=== PATIENT | female | born 1955 | race Caucasian/White ===

== ENCOUNTER 2022-01-07 05:30 | Outpatient (CLI) | payer BC ==
[~2022-01-07] VITALS: Ht 167.6 cm; Wt 79.7 kg
[~2022-01-07 05:30] MED LIST: LEVO50TA PO
[2022-01-07] MEDS ORDERED: MONT4TAB8 PO (10:29)
== END 2022-01-07 13:11 ==
LOC: PREOP 05:30
PROVIDERS: ATTEND Surgery
DX: Z01.818 Encounter for other preprocedural examination (principal)

== ENCOUNTER 2022-01-14 08:53 | Day surgery (SDC) | payer MEDICARE, OTHER ==
[~2022-01-14] VITALS: Ht 168 cm; Wt 79.7 kg
[~2022-01-14 08:53] MED LIST changes: +MONT4TAB8 PO
[2022-01-14] MEDS ORDERED: LACTATED RINGERS 1,000 ML IV STA (08:54)
[2022-01-14] MEDS ORDERED: LACTATED RINGERS 1,000 ML IV ONE (08:57)
[2022-01-14] MEDS ORDERED: LIDOCAINE JELLY 2% 6 ML SYRINGE MM PRN (09:00)
[2022-01-14 09:10] VITALS: BP 136/65
[2022-01-14] MEDS ORDERED: MIDAZOLAM 2 MG/2 ML (VERSED) VIAL ONE (10:30)
[2022-01-14] MEDS ORDERED: PROPOFOL INJECTION 50 ML IV ONE ×2 (10:30→10:59)
[2022-01-14] MEDS ORDERED: ONDANSETRON 4 MG (ZOFRAN) ORAL DISSOLVE TAB PO PRN (10:30)
[2022-01-14] MEDS ORDERED: ONDANSETRON 4 MG/2 ML (SDV) Z0FRAN IVP PRN (10:30)
--- NOTE | 2022-01-14 10:30 | Progress Note-Pre Operative ---
Pre-Operative Progress Note H&P Reviewed The H&P was reviewed, patient examined and no changes noted. Date Seen by Provider: Jan 14, 2022 Time Seen by Provider: 10:00 Date H&P Reviewed: Jan 14, 2022 Time H&P Reviewed: 10:00 Pre-Operative Diagnosis: screening/family hx SIMRAN GROVER MD Jan 14, 2022 10:30
--- NOTE | 2022-01-14 10:31 | Discharge Inst-Surgical ---
D/C Lap Instructions-LENORE Follow Up Activity as tolerated High Fiber Diet 25g or more per day Avoid Alcohol, Caffeine, Spicy [place] and Acid foods. Drink 64 fluid oz or more of fluids per day. Symptoms to Report: Fever over 101 degree F, Nausea/Vomiting If any problems/questions: Contact your physician or go to Emergency Room SIMRAN GROVER MD Jan 14, 2022 10:31
[2022-01-14 11:14] VITALS: BP 129/57
[2022-01-14 11:19] VITALS: BP 123/57
[2022-01-14 11:25] VITALS: BP 126/63
--- NOTE | 2022-01-14 11:32 | Progress Note-Post Operative ---
Post-Operative Progess Note Surgeon (s)/Bell Person (s) Surgeon SIMRAN GROVER MD Bell Person: none Pre-Operative Diagnosis screening/family hx Post-Operative Diagnosis chronic stage 2 ext and int hemorrhoids. Procedure & Operative Findings Date of Procedure 01/14/22 Procedure Performed/Findings colonoscopy Anesthesia Type mac Estimated Blood Loss Estimated blood loss (mL): minimal Specimens/Packing Specimens Removed none SIMRAN GROVER MD Jan 14, 2022 11:32
[2022-01-14 11:50] VITALS: BP 135/60
--- NOTE | 2022-01-14 13:06 | Anesthesia-General Post-Op ---
MAC Patient Condition Mental Status/LOC: Same as Preop Cardiovascular: Satisfactory Nausea/Vomiting: Absent Respiratory: Satisfactory Pain: Controlled Complications: Absent Post Op Complications Complications None Follow Up Care/Instructions Patient Instructions None needed. Anesthesiology Discharge Order Discharge Order Patient is doing well, no complaints, stable vital signs, no apparent adverse anesthesia problems. No complications reported per nursing. SERG FINLEY CRNA Jan 14, 2022 13:06
--- NOTE | 2022-01-14 16:23 | OPERATIVE REPORT ---
DATE OF SERVICE: 01/14/2022 ATTENDING PRIMARY CARE PHYSICIAN: Dr. Tad Sutherland. PREOPERATIVE DIAGNOSIS: Screening colonoscopy with family history of colon cancer. POSTOPERATIVE DIAGNOSES: Mild chronic stage II external and internal hemorrhoids. PROCEDURE: Colonoscopy. SURGEON: Simran Grover MD. ANESTHESIA: Monitored anesthesia care. ESTIMATED BLOOD LOSS: Minimal. FINDINGS: Same as postoperative diagnoses. DISPOSITION: The patient tolerated the procedure well. INDICATIONS: The patient is a 66-year-old female in need of a screening colonoscopy. Her last colonoscopy was in 2014 and a small hyperplastic polyp was identified of the rectum. She also does have a family history of colon cancer with her mother having the disease. She states that she is otherwise doing well, having no major issues with diarrhea nor constipation as well as no red blood per rectum nor any dark tarry stools. DESCRIPTION OF PROCEDURE: The patient was brought to the upper endoscopy suite, laid in the left lateral decubitus position. After adequate IV pain and sedative medications and monitored anesthesia care, a digital rectal examination was performed. Mild chronic stage II external and internal hemorrhoids were identified, which were not actively edematous nor inflamed and no bleeding. Normal suture tone was felt and there were no palpable masses. The endoscope was then intubated to the anus and rectum gently insufflated. The endoscope was then advanced through the valves of [place] of the rectum with no polyps or any neoplasms identified. Through the sigmoid colon, no diverticulosis identified. The endoscope was then advanced and remainder of the descending, transverse and ascending colon to the cecum. Using [facility], the endoscope was withdrawn while taking a second look with no other lesions identified. The patient tolerated the procedure well. We will recommend continued medical management with high-fiber diet with at least 25 grams of fiber daily as well as significant amounts of water to promote soft stools on a daily basis. Due to her first-degree family history of colon cancer, we will also recommend a followup colonoscopy in approximately 5 years. Job ID: [id number] DocumentID: [id number] Dictated Date: 01/14/2022 11:14:35 Client Service Supervisor Date: 01/14/2022 16:21:31 Dictated By: SIMRAN GROVER MD
== END 2022-01-14 12:00 | disposition home or self-care (01) ==
LOC: ENDO 08:53
PROVIDERS: ATTEND Surgery
DX: Z12.11 Encounter for screening for malignant neoplasm of colon (principal); K64.1 Second degree hemorrhoids; Z80.0 Family history of malignant neoplasm of digestive organs